=== PATIENT | male | born 1985 | race Caucasian/White ===

== ENCOUNTER 2017-05-28 14:57 | Emergency (ER) | payer OTHER ==
[2017-05-28] MEDS: HYDROcodone /APAP 5/325 1 EACH TABLET PO ONE (15:28)
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
[2017-05-28 17:46] VITALS: BP 129/86
--- NOTE | 2017-05-29 01:13 | Diagnostic Imaging Report ---
TONEY FUNES [facility] [address] [facility] [address] [place], [place]. [address] Report Submission Date: May 28, 2017 5:18:48 PM CDT Patient Study Name: NIK TROTTER Date: May 28, 2017 4:55:56 PM CDT Modality Type: CT\SR Gender: M Description: CT BRAIN W/O CONTRAST : 81 Institution: [facility] Physician: TONEY FUNES Examination: CT head without contrast History: Trauma Comparison exam: None available Technique: Noncontrast head CT protocol. Findings: Ventricles and sulci are appropriate for patient age. Cerebrocerebellar parenchyma demonstrates normal attenuation. No evidence for parenchymal hemorrhage. No evidence for mass or mass effect. No midline shift. No extra axial fluid collections. Partial visualization of the paranasal sinuses , mastoid air cells, orbits, skull and scalp without gross irregularity. Impression: No acute parenchymal process. No hemorrhage. Electronically signed on May 28, 2017 5:18:48 PM CDT by: Salvador MORALES
--- NOTE | 2017-05-29 01:15 | Diagnostic Imaging Report ---
TONEY FUNES [facility] [address] [facility] [address] [place] [address]. [id number] Report Submission Date: May 28, 2017 5:22:01 PM CDT Patient Study Name: NIK TROTTER Date: May 28, 2017 4:58:33 PM CDT Modality Type: CT\SR Gender: M Description: CT C-SPINE W/O CONTRAS : 81 Institution: [facility] Physician: TONEY FUNES Examination: CT cervical spine History: Trauma Comparison exams: None provided Technique: CT cervical spine axial imaging with sagittal and coronal reconstruction Findings: Sagittal reconstruction demonstrates normal height and alignment the cervical vertebral bodies. No anterior compression deformity. Coronal reconstruction does not demonstrate locked or perched facets. No atlantoaxial abnormality. Axial imaging obtained from the skull base through T1 Lamina and pedicles are intact. No ossific density within the central canal. No prevertebral soft tissue abnormality. Impression: No evidence for fracture Electronically signed on May 28, 2017 5:22:01 PM CDT by: Salvador MORALES
--- NOTE | 2017-05-29 01:19 | Diagnostic Imaging Report ---
TONEY FUNES [facility] [address] [facility] [address] [address] Report Submission Date: May 28, 2017 4:07:17 PM CDT Patient Study Name: NIK TROTTER Date: May 28, 2017 3:41:15 PM CDT Modality Type: CR Gender: M Description: SPINE : 81 Institution: [facility] Physician: TONEY FUNES Examination: Plain film thoracic spine History: Trauma Findings: 3 views of the thoracic spine demonstrate normal height. No anterior compression. Few anterior osteophytes. No soft tissue abnormalities. Impression: No compression deformity. Electronically signed on May 28, 2017 4:07:17 PM CDT by: Salvador MORALES
--- NOTE | 2017-05-29 01:21 | Diagnostic Imaging Report ---
TONEY FUNES [facility] [address] [facility] [address] [address] Report Submission Date: May 28, 2017 4:03:57 PM CDT Patient Study Name: NIK TROTTER Date: May 28, 2017 3:33:51 PM CDT Modality Type: CR Gender: M Description: SPINE : 81 Institution: [facility] Physician: TONEY FUNES Examination: Cervical spine History: Trauma Comparison exams: None available Findings: 3 views of the cervical spine demonstrate normal height and alignment. No anterior compression. No abnormal listhesis. No odontoid abnormality. No prevertebral abnormality Impression: No osseous abnormality. Electronically signed on May 28, 2017 4:03:57 PM CDT by: Salvador MORALES
== END 2017-05-28 17:42 | disposition home or self-care (01) ==
LOC: ED 14:57
DX: S09.90XA Unspecified injury of head, initial encounter (principal); X58.XXXA Exposure to other specified factors, initial encounter; Y93.9 Activity, unspecified; Y99.9 Unspecified external cause status; R51 Headache; M54.2 Cervicalgia; M54.9 Dorsalgia, unspecified
CPT/HCPCS: 70450; 72040; 72072; 72125; A9270; 99283